=== PATIENT | male | born 1955 | race Caucasian/White ===

== ENCOUNTER 2016-05-08 09:57 | Emergency (ER) | payer OTHER ==
[~2016-05-08] VITALS: Ht 175.3 cm; Wt 85.9 kg
[~2016-05-08 09:57] MED LIST: ACET650S10 PO
[2016-05-08 10:00] VITALS: TEMP 36.6; Ht 175.3 cm; Wt 85.9 kg
[2016-05-08] MEDS ORDERED: SULF800T23 PO (10:26)
[2016-05-08 11:01] LABS: BASO % 0.5 %; BASO ABS # 0.03 K/uL (0-0.2); COMPLETE YES; HEMATOCRIT 40.1 % (42-52); IG% 0.3 %; LYMPH % 8.7 %; LYMPH ABS # 0.52 K/uL (1.2-3.4); MEAN CELL VOLUME 86.8 fL (80-100); MEAN CORPUSCULAR HEMOGLOBIN 30.7 pg (25-34); MEAN CORPUSCULAR HGB CONC 35.4 g/dl (32-36); MEAN PLATELET VOLUME 9.3 fL (7.4-10.4); MONO % 11.5 %; PLATELET COUNT 281 K/uL (130-400); RED BLOOD COUNT 4.62 M/uL (4.7-6.1); WHITE BLOOD COUNT 6.01 K/uL (4.8-10.8)
[2016-05-08 11:25] LABS: URINE APPEARANCE CLEAR (CLEAR); URINE BILIRUBIN NEG (NEG); URINE COLOR DK YELLOW; URINE NITRITE NEG (NEG); URINE SPECIFIC GRAVITY 1.015 (1.000-1.030); UROBILINOGEN NEG (NEG); ZZUR CULT IF INDIC CLEAN CATCH NO
[2016-05-08 11:31] LABS: BUN/CREATININE RATIO 9.6 (10-20); CALCIUM 9.4 mg/dl (8.5-10.1); CREATININE 0.82 mg/dl (0.60-1.40)
[2016-05-08 11:34] LABS: ALB/GLOB RATIO 0.7 (0.9-2)
[2016-05-08 11:44] LABS: MANUAL MICROSCOPIC REQUIRED? NO; REVIEW REQ? NO
[2016-05-08] MEDS ORDERED: IBUPROFEN 600 MG TAB PO STA (12:36)
[2016-05-08] MEDS ORDERED: IBUP-1427 PO (12:47)
--- NOTE | 2016-05-08 12:49 | EMERGENCY ROOM VISIT NOTE ---
History Report prepared by Tien: Oneyda Washburn Under the Supervision of: Dr. Jose Conti M.D. First contact with patient: 10:07 Chief Complaint: ILLNESS Stated Complaint: BLOOD WORK History of Present Illness The patient is a 60 year old male who presents to the Emergency Room as referred by doctor for possible blood work as he has had intermittent fevers, chills and aching pains to his ankles and feet over the past 5 days. Currently, patient rates his discomfort as a 5/10, which was not relieved after taking Aleve last evening. At the time of onset 5 days ago, patient began with "a high fever" and chills. After tiesha the fever, he also developed aching pains in his feet and ankles, making it difficult for him to walk. Patient states that his left ankle is painful in the area where it was previously fused after suffering a fracture several years prior. He denies having pain to any of his other joints, or anywhere else about his body, other than is right ankle and bilateral feet. The patient states that his urine has appeared to be darker in color than normal despite drinking large amounts of water over the past few days , but he denies dysuria or increased frequency of urination. Patient is currently being treated for recurrent ear infections (over the past 2 months), but after visiting his ENT provider today and explaining his symptoms he was referred to the ED for further evaluation and possibly blood work as there were concerns for bacterial infection. Patient is currently on eardrops and an antibiotic for his ear infections. He denies headache, change in vision, sore throat, chest pain, shortness of breath, cough, abdominal pain, nausea, vomiting , diarrhea or other acute symptoms. Source of History: patient Onset: over the past 5 days Position: ankle (bilateral), foot (bilateral), other (general) Symptom Intensity: 5/10 Quality: ache, other (fevers) Timing: intermittent Associated Symptoms: + chills, + fevers, + urinary symptoms (darker than normal), No SOB, No abdominal pain, No chest pain, No cough, No headache, No nausea, No sorethroat, No vomiting Review of Systems All systems have been listed, reviewed, and are negative other than those previously mentioned. Please see Additional Medical History Sheet. Past Medical & Surgical Medical Problems: (1) Fall (2) Fall due to ice or snow (3) Hemotympanum (4) Skull fracture (5) Urinary retention Surgical Problems: (1) Ankle fracture, left Family History No pertinent family history Social History Smoking Status: Never Smoker Alcohol Use: heavy Marital Status: Housing Status: lives with significant other Occupation Status: employed Current/Historical Medications Scheduled Ibuprofen Tab (Motrin), 600 MG PO Q6H Sulfa/Trimethoprim (Bactrim Ds 800MG/160MG), 1 TAB PO BID Allergies Coded Allergies: No Known Allergies (Verified , 05/08/16) Physical Exam Vital Signs Date Time Temp Pulse Resp B/P Pulse Ox O2 Delivery O2 Flow Rate FiO2 05/08/16 13:05 106 16 102/81 98 Room Air 05/08/16 12:24 93 16 125/76 96 Room Air 05/08/16 10:45 100 18 117/80 96 Room Air 05/08/16 10:00 36.6 111 19 110/72 98 Room Air Physical Exam GENERAL: Patient awake, alert, oriented x 3. Patient follows commands. Patient does not appear toxic. Patient is adequately hydrated and well- nourished. SKIN: No erythema, pallor, cyanosis or rash HEENT: Normal head, pupils equal, reactive to light and accommodation. Collection of white matter covering over the tympanic membrane. Oral cavity and posterior pharynx appear normal. Neck: Without adenopathy, no neck vein distention. LUNGS: Clear to auscultation. No wheezes, no rales, no rhonchi. HEART: No murmurs. No gallops. No rubs ABDOMEN: No masses, no rebound, no hepatomegaly or splenomegaly. EXTREMITIES: Patient has deformed left ankle from previous surgery. No pedal or pretibial edema. No calf or thigh tenderness. NEUROLOGIC: Cranial nerves II-XII within normal limits. No gross motor sensory function deficits. Medical Decision & Procedures Laboratory Results 05/08/16 10:30 Red Blood Count 4.62, Mean Corpuscular Volume 86.8, Mean Corpuscular Hemoglobin 30.7, Mean Corpuscular Hemoglobin Concent 35.4, Mean Platelet Volume 9.3, Neutrophils (%) (Auto) 75.0, Lymphocytes (%) (Auto) 8.7, Monocytes (%) (Auto) 11.5, Eosinophils (%) (Auto) 4.0, Basophils (%) (Auto) 0.5, Neutrophils # (Auto ) 4.51, Lymphocytes # (Auto) 0.52, Monocytes # (Auto) 0.69, Eosinophils # (Auto ) 0.24, Basophils # (Auto) 0.03 05/08/16 10:27 Test 05/08/16 10:27 05/08/16 10:30 05/08/16 10:58 Anion Gap 12.0 mmol/L (3-11) Est Creatinine Clear Calc Drug Dose 105.4 ml/min Estimated GFR () 112.2 Estimated GFR (Non- 96.8 BUN/Creatinine Ratio 9.6 (10-20) Lactic Acid Level 1.0 mmol/L (0.4-2.0) Calcium Level 9.4 mg/dl (8.5-10.1) Total Bilirubin 0.9 mg/dl (0.2-1) Aspartate Amino Transf (AST/SGOT) 25 U/L (15-37) Alanine Aminotransferase (ALT/SGPT) 68 U/L (12-78) Alkaline Phosphatase 336 U/L (45-117) Total Protein 8.0 gm/dl (6.4-8.2) Albumin 3.4 gm/dl (3.4-5.0) Globulin 4.6 gm/dl (2.5-4.0) Albumin/Globulin Ratio 0.7 (0.9-2) White Blood Count 6.01 K/uL (4.8-10.8) Red Blood Count 4.62 M/uL (4.7-6.1) Hemoglobin 14.2 g/dL (14.0-18.0) Hematocrit 40.1 % (42-52) Mean Corpuscular Volume 86.8 fL (80-100) Mean Corpuscular Hemoglobin 30.7 pg (25-34) Mean Corpuscular Hemoglobin Concent 35.4 g/dl (32-36) Platelet Count 281 K/uL (130-400) Mean Platelet Volume 9.3 fL (7.4-10.4) Neutrophils (%) (Auto) 75.0 % Lymphocytes (%) (Auto) 8.7 % Monocytes (%) (Auto) 11.5 % Eosinophils (%) (Auto) 4.0 % Basophils (%) (Auto) 0.5 % Neutrophils # (Auto) 4.51 K/uL (1.4-6.5) Lymphocytes # (Auto) 0.52 K/uL (1.2-3.4) Monocytes # (Auto) 0.69 K/uL (0.11-0.59) Eosinophils # (Auto) 0.24 K/uL (0-0.5) Basophils # (Auto) 0.03 K/uL (0-0.2) RDW Standard Deviation 43.8 fL (36.4-46.3) RDW Coefficient of Variation 13.8 % (11.5-14.5) Immature Granulocyte % (Auto) 0.3 % Immature Granulocyte # (Auto) 0.02 K/uL (0.00-0.02) Erythrocyte Sedimentation Rate 74 mm/hr (0-14) Urine Color DK YELLOW Urine Appearance CLEAR (CLEAR) Urine pH 5.0 (4.5-7.5) Urine Specific [place] 1.015 (1.000-1.030) Urine Protein NEG (NEG) Urine Glucose (UA) NEG (NEG) Urine Ketones NEG (NEG) Urine Occult Blood NEG (NEG) Urine Nitrite NEG (NEG) Urine Bilirubin NEG (NEG) Urine Urobilinogen NEG (NEG) Urine Leukocyte Esterase NEG (NEG) Laboratory results as stated above per my review. Medications Administered Medications (Trade) Dose Ordered Sig/Armaan Route Start Time Stop Time Status Last Admin Dose Admin Ibuprofen (Motrin Tab) 600 mg NOW STAT PO 05/08/16 12:36 05/08/16 12:38 DC 05/08/16 13:05 600 MG ED Course 1008: Past medical records reviewed. The patient was evaluated in room B9. A complete history and physical examination was performed. 1236: I reevaluated the patient at this time and updated him on the results of his lab tests. Ibuprofen 600 mg PO was ordered. His PCP will be contacted. 1245: I discussed the patient's case with his PCP, Dr. Bunch. A treatment plan was agreed upon. She will follow up with the patient in her office later this week. 1250: I updated the patient on my discussion with Dr. Bunch. Additional discharge instructions were also discussed. He verbalized his understanding and agreement with the treatment plan, and he is now ready for disposition. Medical Decision Carotid carotid bruits were appreciated well. Left differential CVA TIA chronic Nurses notes reviewed. Medical history sheet reviewed. Differential diagnosis includes but is not limited to: sepsis, viral infection, SIRS, rheumatoid arthritis, and osteoarthritis. The patient has a chronic infection of his ear and is now here with fever and pain in his ankles and feet which is intermittent. There is some concern about possible sepsis. Patient's white count, and lactic acid are not elevated. The patient's sedimentation rate is greater than 70. Alkaline phosphatase is elevated. Urinalysis is clean. The patient had prior injuries to both ankles requiring orthopedic repair. The patient was given ibuprofen here and be maintained on that medication at home. If that is not working he may require steroids. Patient may require a rheumatologic workup if symptoms are not subsiding the next 10 days. I discussed care with Dr. Bunch. Consults Time Called: [phone] Consulting Physician: Dr. Bunch - PCP Returned Call: [phone] Discussed the patient's case. A treatment plan was agreed upon. She will follow up with him in her office later this week. Impression Primary Impression: Inflammatory arthritis Scribe Attestation The scribe's documentation has been prepared under my direction and personally reviewed by me in its entirety. I confirm that the note above accurately reflects all work, treatment, procedures, and medical decision making performed by me. Departure Information Dispostion Home / Self-Care ( the x-ray back to so nystagmus 9EE sinus morning right sig I with pain in his feet and ankles so I don't think aseptic I think the ear things unrelated his white count is normal his lactic acid is not elevated but he does have a sedimentation rate of like 74 please cut some definite inflammatory finger on on again slightly ibuprofen here him continue on ibuprofen but I told him that this is not improved and he now is totally findings asymptomatic right now) Prescriptions Ibuprofen Tab (MOTRIN) 600 Mg Tab 600 MG PO Q6H, #30 TAB Prov: Jose Conti M.D. 05/08/16 Referrals Pat Bunch, (PCP) Forms HOME CARE DOCUMENTATION FORM, IMPORTANT VISIT INFORMATION, WORK / SCHOOL INSTRUCTIONS Patient Instructions A Signature Page, My [facility] VerbalizeIt Additional Instructions 600 mg ibuprofen every 6 hours until pain and fever have all resolved. Off work today. You may return to work tomorrow. Follow-up with Dr. Bunch within 3 days if symptoms are not subsiding.
[2016-05-08 13:05] VITALS: BP 102/81; PULSE 106; O2SAT 98
== END 2016-05-08 13:11 | disposition home or self-care (01) ==
LOC: C.EDB 10:00
DX: M05.9 Rheumatoid arthritis with rheumatoid factor, unspecified (principal); R82.90 Unspecified abnormal findings in urine; H66.90 Otitis media, unspecified, unspecified ear